=== PATIENT | female | born 1970 | race Caucasian/White ===

== ENCOUNTER → 2018-04-27 | Outpatient (CLI) | payer OTHER ==
[2016-03-31 13:53] VITALS: BP 131/74
[~2018-04-27] MED LIST: CYCL10TA2 PO; METF10007 PO; METH-38 PO; METH4TAB2 PO; NAPR-514 PO; OXYC1TAB15 PO; SITA1TAB11 PO; VENL150C PO; VENL75TA PO
--- NOTE | 2018-04-27 14:08 | KCIC ---
MRI Cervical Spine Without Contrast History: Neck pain, left radiculopathy for 10 days, finger numbness Technique: Multiplanar, multi sequential noncontrast MR imaging was performed of the cervical spine. Comparison: None Findings: There is motion degradation. Cervical cord caliber is within normal limits, no convincing focal signal abnormality. Cervical vertebral body stature and AP alignment are maintained. There is mild degenerative disc disease at C6-7 and to lesser degree at C5-6, mild disc desiccation C4-5. There is no significant marrow edema. C2-C3: Neural foramina and spinal canal are adequate. C3-C4: There is negligible disc osteophyte complex, also shallow protrusion in the far left lateral recess. Central canal is adequate about 11 mm. There is mild narrowing of the left neural foramen apparently by protrusion at the anterior margin. C4-C5: Spinal canal and neural foramina are adequate. C5-C6: There is a broad posterior protrusion which effaces the ventral subarachnoid space and contacts the ventral cord greatest centrally, central canal narrowed to about 7-8 mm. Neural foramina are adequate. C6-C7: There is disc osteophyte complex and bulge. Central canal is narrowed to about 8-9 mm. There is uncovertebral degenerative change greater on the left. There is fairly severe left and at least moderate right neural foramina compromise. C7-T1: Spinal canal and neural foramina are adequate. Impression: 1. There is spinal stenosis about 7-8 mm at C5-C6 and to a somewhat lesser degree at C6-7 as described. There is very shallow protrusion far left lateral recess C3-4, also at the anterior margin of the left neural foramen with mild narrowing. Uncovertebral degenerative change contributes to fairly severe left and at least moderate right C6-7 neural foramina compromise. Electronically signed by: Hector Calderon MD (04/27/2018 2:04 PM) [facility]
== END | disposition home or self-care (01) ==
LOC: KCIC MRI 11:49
PROVIDERS: ATTEND Physician Assistant Medical
DX: M50.121 Cervical disc disorder at C4-C5 level with radiculopathy (principal); M48.02 Spinal stenosis, cervical region; M25.78 Osteophyte, vertebrae
CPT/HCPCS: 72141

== ENCOUNTER 2018-05-15 07:32 | Observation (INO) | payer OTHER ==
[2018-05-15] VITALS (11 sets, daily range): BP systolic 113–130; BP diastolic 65–80
[~2018-05-15] VITALS: Ht 170.2 cm; Wt 84.4 kg
[~2018-05-15 07:32] MED LIST changes: +BACITRACIN 50,000 UNIT in IV NORMAL SALINE 1000ML BAG 1,000 ML IRR ONE; +BUPIVAC MPF-EPI 0.5%-1:200000 30 ML VIAL. ONE; +DULO60CA44 PO; +GABA600T2 PO; +HYDROmorphone 2 MG/ML VIAL IV PRN; +IBUP1TAB84 PO; +IV RINGERS,LACTATED 1000ML 1,000 ML IV SCH; +LIDOCAINE 1% PF 2 ML VIAL. ID PRN; +ONDANSETRON PF 4 MG/2 ML VIAL. IV PRN; +PROCHLORPERAZINE 10 MG/2 ML VIAL. IV PRN; +fentaNYL PF VIAL 100 MCG/2 ML VIAL IV PRN
--- NOTE | 2018-05-15 07:57 | NUR ---
VERIFIED WITH PT THAT SHE DOES HAS ALLERGY TO ADHESIVES. DENIES REACTION TO IV OPSITE BUT DOES STATE REACTION TO SURGICAL DRESSING FROM PREVIOUS BACK SURGERY DONE BY DR CRUZ.
[2018-05-15] MEDS ORDERED: DESFLURANE > 120 MINUTES IH ONE (08:00)
[2018-05-15] MEDS ORDERED: fentaNYL PF VIAL 100 MCG/2 ML VIAL ONE (08:01)
[2018-05-15] MEDS ORDERED: NEOSTIGMINE 10 MG/10 ML VIAL. ONE (08:01)
[2018-05-15] MEDS ORDERED: MIDAZOLAM HCL/PF 2 MG/2 ML VIAL. ONE (08:01)
[2018-05-15] MEDS ORDERED: REMIFENTANIL 2 MG VIAL. IV ONE (08:01)
[2018-05-15] MEDS ORDERED: GLYCOPYRROLATE 1 MG/5 ML VIAL. ONE (08:01)
[2018-05-15] MEDS ORDERED: ROCURONIUM 50 MG/5 ML VIAL. ONE (08:01)
[2018-05-15] MEDS ORDERED: LIDOCAINE 2% PF Vial for OR 5 ML VIAL. ONE (08:02)
[2018-05-15] MEDS ORDERED: PROPOFOL 50 ML IV ONE ×2 (08:02→09:57)
[2018-05-15] MEDS ORDERED: DEXAMETHASONE SOD PHOS 20 MG/5 ML VIAL. ONE (08:02)
[2018-05-15] MEDS ORDERED: ONDANSETRON PF 4 MG/2 ML VIAL. ONE (08:02)
[2018-05-15] MEDS ORDERED: PROPOFOL 20 ML IV ONE (08:02)
[2018-05-15] MEDS ORDERED: PHENYLEPHRINE 10 MG/ML VIAL. ONE (08:18)
--- NOTE | 2018-05-15 11:48 | PDOC ---
BRIEF OPERATIVE NOTE Date: May 15, 2018 Pre-Op Diagnosis cervical HNP C5-6, C6-7 with radiculopathy and weakness Post-Op Diagnosis same Procedure Performed anterior cervical discectomy and fusion C5-6, C6-7 with structural allografts and anterior instrumentation Surgeon Teodoro Dynamic Etching Processor none Anesthesia Type: General Blood Loss 15mL Specimens Obtained disk Findings disc herniations as above, neuromonitoring SSEP and MEP at least baseline throughout procedure Complications none apparent TANYA CRUZ MD May 15, 2018 11:48
[2018-05-15] MEDS ORDERED: fentaNYL PF VIAL 100 MCG/2 ML VIAL IV PRN ×2 (12:00)
[2018-05-15] MEDS ORDERED: NALOXONE 0.4 MG/ML VIAL. IV PRN (12:00)
[2018-05-15] MEDS ORDERED: ONDANSETRON PF 4 MG/2 ML VIAL. IV PRN (12:00)
[2018-05-15] MEDS ORDERED: ACETAMINOPHEN 325 MG TABLET. PO PRN (12:00)
[2018-05-15] MEDS ORDERED: 0.9 % SODIUM CHLORIDE 10 ML DISP.SYRIN. IV PRN (12:00)
[2018-05-15] MEDS ORDERED: MAGNESIUM HYDROXIDE 2,400 MG/30 ML ORAL.SUSP. PO PRN (12:00)
[2018-05-15] MEDS ORDERED: ZOLPIDEM 5 MG TABLET. PO PRN (12:00)
[2018-05-15] MEDS ORDERED: oxyCODONE/APAP 5/325 1 TAB TABLET PO PRN (12:00)
[2018-05-15] MEDS ORDERED: MAG HYDROX/ALUMINUM HYD/SIMETH 30 ML ORAL.SUSP PO PRN (12:00)
[2018-05-15] MEDS ORDERED: CALCIUM CARBONATE 500 MG TAB.CHEW PO PRN (12:00)
[2018-05-15] MEDS: fentaNYL PF VIAL 100 MCG/2 ML VIAL IV PRN ×2 (12:09→12:23)
[2018-05-15] MEDS ORDERED: MORPHINE SULFATE 4 MG/ML VIAL. ONE (12:34)
[2018-05-15] MEDS: MORPHINE SULFATE 4 MG/ML VIAL. IV PRN ×3 (12:39→13:19)
--- NOTE | 2018-05-15 13:30 | NUR ---
Arrived to unit by bed from PACU. No c/o at this time. Midline dressing on neck is d/i with ice pack. Voice a little hoarse. Equal hand student development specialist bilaterally. Still has numbness on left hand finger tips. IVF's intact and infusing. ORESTES's and SCD's on bilaterally. Oriented to room and controls. Side rails up x's 2 with call light in reach.
[2018-05-15] MEDS: GABAPENTIN 300 MG CAPSULE. PO SCH ×2 (13:50→21:11)
[2018-05-15] MEDS: METHOCARBAMOL 750 MG TABLET PO SCH ×2 (13:51→21:11)
[2018-05-15] MEDS: oxyCODONE/APAP 5/325 1 TAB TABLET PO PRN (18:08)
[2018-05-15] MEDS: SENNOSIDES/DOCUSATE 8.6/50MG TABLET. PO SCH (21:00)
[2018-05-15] MEDS: DOCUSATE SODIUM 100 MG CAPSULE. PO SCH (21:11)
[2018-05-15] MEDS: diphenhydrAMINE HCL 25 MG CAPSULE PO PRN (21:18)
[2018-05-16 03:00] VITALS: BP 125/82
[2018-05-16] MEDS: diphenhydrAMINE HCL 25 MG CAPSULE PO PRN (04:48)
--- NOTE | 2018-05-16 05:03 | NUR ---
Patient scratching around island dressing, slightly anxious ,"this has to come off." Dressing removed, cleansed w/ Chloraprep. States she can tolerate plastic tape. Folded 4x4 placed over incision (which has steri- strip) and secured w/ plastic tape. Surgical area is slightly swollen. Ice pack placed. Benadryl given.
[2018-05-16] MEDS: oxyCODONE/APAP 5/325 1 TAB TABLET PO PRN (06:08)
[2018-05-16] MEDS: METHOCARBAMOL 750 MG TABLET PO SCH (06:12)
[2018-05-16] MEDS: GABAPENTIN 300 MG CAPSULE. PO SCH (06:12)
[2018-05-16 06:44] VITALS: BP 124/86
[2018-05-16] MEDS ORDERED: DULoxetine HCL 30 MG CAPSULE.DR PO SCH (07:00)
--- NOTE | 2018-05-16 07:19 | NUR ---
Found patient dangling at bedside w/ surgical dressing on bedside table. Steri strips D/I. Reports the burning and itching is "better."
[2018-05-16] MEDS: DOCUSATE SODIUM 100 MG CAPSULE. PO SCH (07:52)
[2018-05-16] MEDS: SENNOSIDES/DOCUSATE 8.6/50MG TABLET. PO SCH (07:52)
[2018-05-16] MEDS ORDERED: CALCIUM CARB/VIT D3 500/200 TABLET. PO SCH (08:00)
[2018-05-16] MEDS ORDERED: FERROUS SULFATE 325 MG TABLET. PO SCH (08:00)
--- NOTE | 2018-05-16 08:56 | PDOC ---
PROGRESS NOTES Subjective Subjective Denies acute complaints. Numbness improved. Some residual numbness in thumb. Reports improved LUE strength. Micheline po without problems. Some pruritic reaction to adhesives from dressing, now improved. Objective Objective Vital Signs Date Time Temp Pulse Resp B/P (MAP) Pulse Ox O2 Delivery O2 Flow Rate FiO2 05/16/18 07:23 20 Room Air 05/16/18 06:44 97.7 67 124/86 (99) 100 97.7 05/15/18 11:48 10 Intake and Output 05/16/18 07:01 Intake Total 1400 ml Output Total 850 ml Balance 550 ml Intake Oral 1400 ml Output Urine Total 850 ml # Voids 15 Physical Exam Physical Exam AAOx4, NAD, LYNN 5/5 throughout, incision c/d/i flat, speech fluent with good phonation Assessment Assessment POD 1 C5-6, 6-7 ACDF Plan Plan of Care Appears to be recovering well thus far with improved numbness and now normal strength. D/c home today with standard post-op restrictions. F/c two weeks with NS/[facility] [phone]. Comment Review of Relevant I have reviewed the following items enedina (where applicable) has been applied. Medications Current Medications Bacitracin 62763 unit/Sodium Chloride 1,000 ml @ 1,000 mls/hr 1X ONCE IRR Last administered on 05/15/18at 09:30; Start 05/15/18 at 06:00; Stop 05/15/18 at 06:59; Status DC Prochlorperazine Edisylate (Compazine) 5 mg PACU PRN PRN IV NAUSEA, MRX1; Start 05/15/18 at 07:00; Stop 05/16/18 at 06:59; Status DC Hydromorphone HCl (Dilaudid) 0.5 mg PRN Q10MIN PRN IV SEV PAIN, Second choice; Start 05/15/18 at 07:00; Stop 05/16/18 at 06:59; Status DC Lidocaine HCl (Xylocaine-Mpf 1% 2ml Vial) 2 ml PRN 1X PRN ID IV START; Start at 07:00; Stop 05/16/18 at 06:59; Status DC Ringer's Solution 1,000 ml @ 30 mls/hr Q24H IV ; Start 05/15/18 at 07:00; Stop 05/15/18 at 18:59; Status DC Morphine Sulfate (Morphine Sulfate) 1 mg PRN Q10MIN PRN IV SEVERE PAIN Last administered on 05/15/18at 13:19; Start 05/15/18 at 07:00; Stop 05/16/18 at 06:59 ; Status DC Fentanyl Citrate (Fentanyl 2ml Vial) 50 mcg PRN Q5MIN PRN IV MODERATE TO SEVERE PAIN Last administered on 05/15/18at 12:23; Start 05/15/18 at 07:00; Stop 05/16/18 at 06:59; Status DC Fentanyl Citrate (Fentanyl 2ml Vial) 25 mcg PRN Q5MIN PRN IV MILD PAIN; Start 05/15/18 at 07:00; Stop 05/16/18 at 06:59; Status DC Ondansetron HCl (Zofran) 4 mg PRN Q6HRS PRN IV NAUSEA/VOMITING; Start 05/15/18 at 07:00; Stop 05/16/18 at 06:59; Status DC Cefazolin Sodium/ Dextrose 50 ml @ 100 mls/hr 1X ONCE IV Last administered on 05/15/18at 09:07; Start 05/15/18 at 06:00; Stop 05/15/18 at 06:29; Status DC Bupivacaine HCl/ Epinephrine Bitart (Sensorcain-Mpf Epi 0.5%-1:[id number]) 30 ml STK -MED ONCE .ROUTE Last administered on 05/15/18at 09:27; Start 05/15/18 at 07:17 ; Stop 05/15/18 at 07:20; Status DC Desflurane (Suprane) 90 ml STK-MED ONCE IH ; Start 05/15/18 at 08:00; Stop 05/15 at 08:04; Status DC Neostigmine Methylsulfate (Bloxiverz) 10 mg STK-MED ONCE .ROUTE ; Start at 08:01; Stop 05/15/18 at 08:04; Status DC Midazolam HCl (Versed) 2 mg STK-MED ONCE .ROUTE ; Start 05/15/18 at 08:01; Stop 05/15/18 at 08:04; Status DC Remifentanil HCl (Ultiva) 2 mg STK-MED ONCE IV ; Start 05/15/18 at 08:01; Stop 05/15/18 at 08:04; Status DC Fentanyl Citrate (Fentanyl 2ml Vial) 100 mcg STK-MED ONCE .ROUTE ; Start at 08:01; Stop 05/15/18 at 08:05; Status DC Glycopyrrolate (Robinul) 1 mg STK-MED ONCE .ROUTE ; Start 05/15/18 at 08:01; Stop 05/15/18 at 08:05; Status DC Rocuronium Showell (Zemuron) 50 mg STK-MED ONCE .ROUTE ; Start 05/15/18 at 08:01 ; Stop 05/15/18 at 08:05; Status DC Ondansetron HCl (Zofran) 4 mg STK-MED ONCE .ROUTE ; Start 05/15/18 at 08:02; Stop 05/15/18 at 08:06; Status DC Lidocaine HCl (Lidocaine Pf 2% Vial) 5 ml STK-MED ONCE .ROUTE ; Start 05/15/18 at 08:02; Stop 05/15/18 at 08:06; Status DC Propofol 50 ml @ As Directed STK-MED ONCE IV ; Start 05/15/18 at 08:02; Stop at 08:06; Status DC Propofol 20 ml @ As Directed STK-MED ONCE IV ; Start 05/15/18 at 08:02; Stop at 08:06; Status DC Dexamethasone Sodium Phosphate (Decadron) 20 mg STK-MED ONCE .ROUTE ; Start at 08:02; Stop 05/15/18 at 08:06; Status DC Phenylephrine HCl (Feng-Synephrine Inj) 10 mg STK-MED ONCE .ROUTE ; Start at 08:18; Stop 05/15/18 at 08:20; Status DC Propofol 50 ml @ As Directed STK-MED ONCE IV ; Start 05/15/18 at 09:57; Stop at 09:58; Status DC Multivitamins (Thera M Plus) 1 tab DAILY PO Last administered on 05/16/18at 07: 52; Start 05/16/18 at 09:00 Calcium/Vitamin D (Oscal D 500mg/ 200uts) 1 tab BIDWMEALS PO Last administered on 05/16/18at 07:51; Start 05/16/18 at 08:00 Ferrous Sulfate (Feosol) 325 mg BIDWMEALS PO Last administered on 05/16/18at 07: 52; Start 05/16/18 at 08:00 Acetaminophen (Tylenol) 650 mg PRN Q6HRS PRN PO HEADACHE / TEMP; Start at 12:00 Al Hydroxide/Mg Hydroxide (Mylanta Plus Xs) 30 ml PRN Q3HRS PRN PO HEARTBURN / GAS; Start 05/15/18 at 12:00 Calcium Carbonate/ Glycine (Tums) 500 mg PRN Q3HRS PRN PO INDIGESTION; Start at 12:00 Diphenhydramine HCl (Benadryl) 25 mg PRN Q6HRS PRN PO ITCHING Last administered on 05/16/18at 04:48; Start 05/15/18 at 12:00 Zolpidem Tartrate (Ambien) 5 mg PRN QHS PRN PO INSOMNIA, MAY REPEAT IN 1HR; Start 05/15/18 at 12:00 Naloxone HCl (Narcan) 0.1 mg PRN Q2MIN PRN IV ADMIN; Start 05/15/18 at 12:00 Sodium Chloride (Normal Saline Flush) 3 ml QSHIFT PRN IV AFTER MEDS AND BLOOD DRAWS; Start 05/15/18 at 12:00 Oxycodone/ Acetaminophen (Percocet 5/325) 1 tab PRN Q4HRS PRN PO MILD PAIN, 1ST CHOICE Last administered on 05/16/18at 06:08; Start 05/15/18 at 12:00 Oxycodone/ Acetaminophen (Percocet 5/325) 2 tab PRN Q4HRS PRN PO MODERATE PAIN , SEVERE PAIN; Start 05/15/18 at 12:00 Methocarbamol (Robaxin) 750 mg TID PO Last administered on 05/16/18at 06:12; Start 05/15/18 at 14:00 Senna/Docusate Sodium (Senna Plus) 1 tab BID PO Last administered on 05/16/18at 07:52; Start 05/15/18 at 21:00 Docusate Sodium (Colace) 100 mg BID PO Last administered on 05/16/18at 07:52; Start 05/15/18 at 21:00 Magnesium Hydroxide (Milk Of Magnesia) 2,400 mg PRN Q12HR PRN PO CONSTIPATION; Start 05/15/18 at 12:00 Ondansetron HCl (Zofran) 4 mg PRN Q6HRS PRN IV NAUESA, 1ST CHOICE; Start at 12:00 Fentanyl Citrate (Fentanyl 2ml Vial) 50 mcg PRN Q1HR PRN IV SEVERE PAIN; Start 05/15/18 at 12:00 Fentanyl Citrate (Fentanyl 2ml Vial) 25 mcg PRN Q1MIN PRN IV SEVERE PAIN; Start 05/15/18 at 12:00 Duloxetine HCl (Cymbalta) 60 mg DAILY PO Last administered on 05/16/18at 06:27; Start 05/16/18 at 07:00 Gabapentin (Neurontin) 300 mg TID PO Last administered on 05/16/18at 06:12; Start 05/15/18 at 14:00 Morphine Sulfate (Morphine Sulfate) 4 mg STK-MED ONCE .ROUTE ; Start 05/15/18 at 12:34; Stop 05/15/18 at 12:36; Status DC Active Scripts Active Reported Duloxetine Hcl 60 Mg Capsule.dr 60 Mg PO DAILY Gabapentin 600 Mg Tablet 300 Mg PO TID Duexis 800-26.6 Mg Tablet (Ibuprofen/Famotidine) 1 Each Tablet 1 Each PO DAILY Vitals/I & O Vital Sign - Last 24 Hours 05/15/18 05/15/18 05/15/18 05/15/18 11:48 12:03 12:03 12:09 Temp 97.5 97.5 Pulse 91 80 Resp 18 14 18 B/P (MAP) 132/58 114/61 Pulse Ox 100 97 O2 Delivery Simple Mask Room Air Room Air O2 Flow Rate 10 05/15/18 05/15/18 05/15/18 05/15/18 12:18 12:23 12:33 12:48 Temp 97.6 97.6 Pulse 70 65 69 Resp 16 16 16 16 B/P (MAP) 103/52 126/56 110/58 Pulse Ox 98 97 97 99 O2 Delivery Room Air Room Air Room Air Room Air 05/15/18 05/15/18 05/15/18 05/15/18 12:54 13:03 13:35 13:50 Temp 98.1 98.1 Pulse 76 67 67 Resp 14 16 16 16 B/P (MAP) 110/58 113/68 (83) 117/65 (82) Pulse Ox 97 95 97 97 O2 Delivery Room Air Room Air Room Air Room Air 05/15/18 05/15/18 05/15/18 05/15/18 14:05 14:20 14:20 14:35 Pulse 67 63 61 Resp 14 14 14 B/P (MAP) 115/70 (85) 118/75 (89) 117/75 (89) Pulse Ox 97 98 98 O2 Delivery Room Air Room Air Room Air Room Air 05/15/18 05/15/18 05/15/18 05/15/18 15:05 15:35 16:35 17:35 Pulse 60 61 62 76 Resp 14 14 14 16 B/P (MAP) 123/80 (94) 118/75 (89) 121/71 (88) 130/73 (92) Pulse Ox 96 96 97 97 O2 Delivery Room Air Room Air Room Air Room Air 05/15/18 05/15/18 05/15/18 05/16/18 18:08 19:07 23:00 03:00 Temp 97.9 98.8 98.0 97.9 98.8 98.0 Pulse 82 58 71 Resp 20 14 20 20 B/P (MAP) 120/76 (91) 122/72 (89) 125/82 (96) Pulse Ox 96 98 99 O2 Delivery Room Air Room Air Room Air Room Air 05/16/18 05/16/18 05/16/18 06:08 06:44 07:23 Temp 97.7 97.7 Pulse 67 Resp 20 20 20 B/P (MAP) 124/86 (99) Pulse Ox 100 O2 Delivery Room Air Room Air Room Air Intake and Output 05/15/18 05/15/18 05/16/18 15:01 23:01 07:01 Intake Total 10 ml 240 ml 1150 ml Output Total 850 ml Balance 10 ml -610 ml 1150 ml TANYA CRUZ MD May 16, 2018 08:56
[2018-05-16] MEDS ORDERED: MULTIVITAMIN with MINERAL TABLET. PO SCH (09:00)
[2018-05-16] MEDS ORDERED: SENN-37 PO (09:28)
[2018-05-16] MEDS ORDERED: METH-38 PO (09:28)
[2018-05-16] MEDS ORDERED: OXYC1TAB15 PO (09:29)
[2018-05-16 10:34] VITALS: BP 112/76
--- NOTE | 2018-05-16 11:14 | NUR ---
Dr Valreio saw the patient this morning and stated to discharge patient today with self care. He was notified about her incision and assessed the patients neck redness/incision. A dry dressing (a 2X2 with a steri strip to hold it in place) was placed over the steri strips on the patients incision but the patient quickly took it off, stating it bothered her and made her itch. Steri strips are dry/intact with no drainage present from incision. IV discontinued in left wrist without complications, no bandage was placed per patient preference and no bleeding present at this time. Discharge education given to patient with proper incision care, patient stated understanding. Discharge teaching also given by PT, OT, and Dr Valerio. NO concerns noted from the patient at this time. Will continue to monitor.
--- NOTE | 2018-05-16 11:40 | NUR ---
Patient left around 1140 in a wheelchair with a friend. She left with all her belongings and discharge education. NO concerns noted upon discharge.
--- NOTE | 2018-05-17 09:13 | PATHOLOGY ---
[facility] Accession Number: [id number] . 01 Material submitted: . HERNIATED DISC . 01 Clinical history: . Herniated disc . 02 Diagnosis: Segments of cartilaginous tissue and minute segments of bone, disc: - Degenerative changes of cartilaginous tissue. LBQ/05/16/2018 . 02 Comment: There is no evidence of an acute inflammatory process or malignancy. (JPM/db; 05/16/2018) . 02 Electronically signed: . Jimy Merino MD, Pathologist NPI- [id number] . 01 Gross description: . The specimen is received in formalin, labeled "[place], Alisha, disc", are multiple oneal-white irregular fragments of gritty tissue possibly admixed with small segments of bone measuring 3.0 x 2.4 x 0.4 cm in aggregate. Hop Weigher tissue is submitted in A1. ([facility]; 05/15/2018) SHS/SHS . 02 Pathologist provided ICD-10: M50.90 . 02 CPT . 768459 Specimen Comment: A courtesy copy of this report has been sent to Specimen Comment: [phone], . Specimen Comment: Report sent to / DR RODRÍGUEZ Specimen Comment: A duplicate report has been generated due to demographic updates. Performed at: 01 [facility] [address], [place] [id number] MD Johann Gonsalez MD Phone: [phone] Performed at: 02 [facility] [address] [place], [place] [id number] MD Jimy Merino MD Phone: [phone]
--- NOTE | 2018-05-17 11:01 | OP ---
DATE OF SURGERY: 05/15/2018 SURGEON: Tanya Cruz MD. IT HELP DESK TECHNICIAN: None. PROCEDURE: Anterior cervical diskectomy and fusion of cervical 5-6 and cervical 6-7 utilizing structural allograft fusion substrate with anterior instrumentation at cervical 5-6 and 6-7, intraoperative use of neuro monitoring. ANESTHESIA: General. COMPLICATIONS: None intraprocedurally. PREOPERATIVE DIAGNOSES: Herniated nucleus pulposus at cervical 5-6 and cervical 6-7 with cervical radiculopathy and weakness. POSTOPERATIVE DIAGNOSES: Herniated nucleus pulposus at cervical 5-6 and cervical 6-7 with cervical radiculopathy and weakness. INDICATIONS FOR THE PROCEDURE: The patient is a 47-year-old female who presents with cervical radiculopathy and weakness localized to a herniated cervical disks at cervical 5-6 and cervical 6-7. Please refer to the patient chart for additional details. DESCRIPTION OF PROCEDURE: After informed consent was obtained, the patient was brought to the operating room, was placed under general anesthesia. Neuro monitoring was instituted and baseline somatosensory and motor evoked potentials were obtained. The patient was placed supine on to the operating table with a shoulder bump under both shoulders with the head placed in very slight extension. All pressure points were checked and padded appropriately. Fluoroscopy was utilized to localize an appropriate incision location on the anterior neck. Once this was completed, the anterior neck was prepped and draped in the usual sterile fashion. A horizontal incision centered over the region of cervical 6 was made with a scalpel. Blunt dissection techniques were utilized to undermine the soft tissues. The platysma was then divided sharply in the plane of the incision. Blunt dissection techniques were again utilized to develop a plane between the trachea and esophagus medially and the carotid sheath laterally to approach the anterior cervical spine. The prevertebral fascia was taken down with a Kittner, and the longus colli muscles were gently cauterized to expose the anterior cervical spine. Level was verified with fluoroscopy prior to the initiation of decompression diskectomy. Once the self-retaining retractors were instituted, distraction pins were instituted across cervical 5-6 and an annulotomy was performed at this location with an 11 blade scalpel. Anterior inferior osteophyte of cervical 5 was taken down with a Kerrison, and the bone was saved for implementation of autograft within the allograft substrate. Diskectomy was performed with a curette as well as pituitary rongeurs and Kerrison rongeurs. The posterior longitudinal ligament was divided with Kerrison rongeur, and disk material was gently teased posteriorly into the disk space with a blunt nerve hook and removed with a pituitary rongeur. Upon completion of the diskectomy, structural allograft, which was combined with allograft and autograft substrate, was instituted and gently tamped in the position. Once this was complete, distraction was removed, and the distraction pin was removed from cervical 5 and placed in cervical 7. Distraction was instituted across cervical 6-7. The annulotomy was again performed with 11 blade scalpel. An anterior inferior osteophyte of cervical 6 was removed with a Kerrison rongeur and saved for use of autograft substrate combined with the allograft. Diskectomy was performed with a curette as well as a pituitary rongeur and a Kerrison rongeur. The posterior longitudinal ligament was divided with a Kerrison rongeur and additional herniated disk material was gently teased posteriorly with a blunt nerve hook and removed with a pituitary rongeur. Once diskectomy was complete, structural allograft combined with autograft and allograft was instituted into the disk space and gently tamped into place with good anatomical contour. Once complete, the distraction was removed and the distraction pins were removed from cervical 6 and cervical 7. A spinal element anterior cervical plate was instituted across cervical 5, 6 and 7, and 2 screws were instituted into each level and tightened to secure the plate with good anatomical contour. The screws and the plate were torqued and locked according to customer quality engineer's specification. Once complete, the construct was visualized with fluoroscopy and noted to be in appropriate location and position. Pristine hemostasis was achieved with FloSeal, cottonoids and some minimal use of bipolar electrocautery. The wound was generously irrigated with antibiotic irrigation prior to closure. The platysma was then reapproximated with 3-0 Vicryl in a simple interrupted fashion. The subcutaneous tissues were reapproximated with 3-0 Vicryl in interrupted inverted fashion. Skin was reapproximated with 4-0 Vicryl in a running subcuticular fashion. Mastisol and Steri-Strips were applied, and the wound was dressed with Telfa and Tegaderm. At the end of procedure, all needle and sponge counts were correct x 2. The patient was extubated in the operating room and taken to recovery room in stable condition. Neuro monitoring remained at least baseline throughout the entire procedure. There were no intraprocedural complications apparent. TANYA CRUZ MD DR: FARAZ/lydia JOB#: [id number] / [id number]
== END 2018-05-16 11:40 | disposition home or self-care (01) ==
LOC: SURG 07:32 → 4 SOUTHEST 11:49
PROVIDERS: ADMIT Neurological Surgery; ATTEND Neurological Surgery
DX: M50.122 Cervical disc disorder at C5-C6 level with radiculopathy (principal); M50.123 Cervical disc disorder at C6-C7 level with radiculopathy; M25.78 Osteophyte, vertebrae; R53.1 Weakness
CPT/HCPCS: 20930; 22551; 22552; 22845; 36415; 76000; 86850; 86900; 86901; 88304; 97530; A7015; C1713; G0378; G0379; G8978; G8979; G8980; J0696; J1100; J2001; J2250; J2270; J2405; J2704; J2710; J3010; J3490; J7030; J7120; Q0163

== ENCOUNTER → 2019-12-25 | Outpatient (CLI) | payer OTHER ==
[~2019-12-25] MED LIST changes: -BACITRACIN 50,000 UNIT in IV NORMAL SALINE 1000ML BAG 1,000 ML IRR ONE; -BUPIVAC MPF-EPI 0.5%-1:200000 30 ML VIAL. ONE; -DULO60CA44 PO; +DULO60CA45 PO; +DULO60CA6 PO; +ESTR-113 PO; -GABA600T2 PO; +GABA600T7 PO; -HYDROmorphone 2 MG/ML VIAL IV PRN; +IOHEXOL 180 MG/ML 10 ML VIAL. ONE; -IV RINGERS,LACTATED 1000ML 1,000 ML IV SCH; -LIDOCAINE 1% PF 2 ML VIAL. ID PRN; +META-21 PO; -ONDANSETRON PF 4 MG/2 ML VIAL. IV PRN; -PROCHLORPERAZINE 10 MG/2 ML VIAL. IV PRN; +SENN-37 PO; -fentaNYL PF VIAL 100 MCG/2 ML VIAL IV PRN; +methylPREDNISolone ACETATE 40 MG/ML VIAL. ONE; +methylPREDNISolone ACETATE 80 MG/ML VIAL. ONE
--- NOTE | 2019-12-25 12:29 | PDOC2 ---
INITIAL PAIN CONSULT DATE OF SERVICE: DOS: DATE: 12/25/19 TIME: 12:22 CHIEF COMPLAINT: Chief Complaint: Low back and bilateral lower extremity pain right greater than left HISTORY OF PRESENT ILLNESS: 49-year-old female presents history of pain low back bilateral lower extremities right greater than left for about 3 months now patient reports much worse with walking standing changing positions not result of any injury or accident that she is aware of. Patient worsening came on suddenly and was increasing slowly after that time over the past 3 months and she "cannot feel surface under my feet". Patient reports numbness in both the feet right knee is numb with right foot dragging with activity standing and walking pain is increased with any standing walking changing positions better with sitting or laying down but awaken her from sleep significantly about every 7-10 times a night now patient reports does not affect her bowel bladder control but does affect her ability to walk significantly she is not use any assistive devices. Patient has tried physical therapy counseling chiropractic treatment exercise she also had trigger point junctions and epidural injections in the past which were helpful the physical therapy and chiropractic has not been significantly helpful but helps temporarily. Patient did have a gastric sleeve procedure in 2017 which helped her lose about 90 pounds and she is continue to exercise and doing everything she can to try and decrease the pain but is still persistent. Patient to try gabapentin as well as meloxicam and metaxalone none of which decreased the pain significantly. Patient reports her disability rating from 0-10 10 being the worst is a 10 with family responsibilities recreation 9 with social activity occupation sexual behavior 8 with self-care and life support activities. Patient did have an MRI scan lumbar spine showing L4-5 broad-based annular disc bulge reduced in AP diameter the midline thecal sac to 0.8 cm with associated disc bulge and osteophyte of the right exiting neural foramen resulting in mode rate inferior neural foraminal encroachment borderline central canal stenosis. L5-S1 has postoperative changes with disc osteophyte complex no significant the left lateral recess contacting the left S1 nerve root. PAST MEDICAL HISTORY: PMH: Obesity, mitral valve prolapse, arthritis, type 2 diabetes, depression PREVIOUS SURGERIES: Past Surgical Hx: Lumbar discectomy 2016 hysterectomy 2014 exploratory laparotomy anterior cervical discectomy and fusion 2019, and previous CURRENT MEDICATIONS: Current Meds: Active Scripts Medications Dose Route/Sig Max Daily Dose Days Date Category Percocet 5-325 Mg Tablet (Oxycodone/Acetaminophen) 1 Each Tablet 1-2 Tab PO PRN Q4HRS PRN 05/16/18 Reported Robaxin-750 (Methocarbamol) 750 Mg Tablet 1 Tab PO Q8HRS 05/16/18 Reported Senokot-S Tablet (Sennosides/Docusate Sodium) 1 Each Tablet 1 Tab PO BID 05/16/18 Reported Duloxetine Hcl 60 Mg Capsule.dr 60 Mg PO DAILY 05/14/18 Reported Gabapentin 600 Mg Tablet 300 Mg PO TID 05/14/18 Reported ALLERGIES; Allergies: Coded Allergies: latex (Verified Allergy, Intermediate, Itching, 05/15/18) rash adhesive tape (Verified Adverse Reaction, Intermediate, Rash, 05/15/18) ITCHING FAMILY HISTORY: Family Hx: No major medical problems or conditions she is aware of SOCIAL HISTORY: Social Hx: Patient drinks socially 1-2 drinks every 3 months or so does not smoke does not use any illegal illicit or recreational drugs is lives with her spouse has 2 children living at home lives locally in [facility], 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 REVIEW OF SYSTEMS: ROS: Positive for those items mentioned in history of present illness, is complete full well-documented patient's chart, all other systems negative. PHYSICAL EXAM: VS: Blood pressure is 134/89 pulse 69 respiration 16 temperature 98.2 F height is 5 foot 8 inches weight is 1 8 8 pounds PE: PHYSICAL EXAMINATION: GENERAL: The patient is awake, alert, oriented, appropriate, very pleasant demeanor HEENT: Shows normocephalic, atraumatic. Extraocular movements are intact and symmetrical. Oral cavity: Mucous membranes moist and pink. NECK: Shows anterior throat supple without palpable lymphadenopathy noted. Swa llow reflex symmetrical. CHEST: Shows normal on inspection. Breath sounds are clear bilaterally, no rales rhonchi wheezes auscultated. HEART: Shows S1, S2 clear. No murmurs auscultated. ABDOMEN: Soft, nontender, nondistended, obese. No palpable organomegaly is noted. No rebound or guarding demonstrated. BACK: Shows spine grossly in the midline. Normal-appearing cervical lordotic curvature. There is slightly increased thoracic kyphosis, some minor flattening of the lumbar lordotic curvature, with well-healed surgical scarring in the midline. Lumbar paraspinous muscles show symmetrical on inspection, on palpation shows some moderate tenderness diffusely throughout the upper, middle and lower distribution of the paraspinous muscles bilaterally and also into the lower thoracic paraspinous musculature, firm and tender, but without specific trigger points, without radiation of pain. The patient has good rotational motion of the lumbar spine, both laterally as well as extension and flexion without significant difficulty. No tenderness over the spinous processes, sacrum or sacroiliac regions. EXTREMITIES: Lower extremities show deep tendon reflexes 2+ in the patellar and tendo calcaneus tendons. Motor exam is 4 on a scale of 5 with right dorsiflexion, extension, quadriceps and hamstring flexion and 4/5 on the left. Peripheral pulses are 1+ posterior tibial. No peripheral edema is noted bilaterally. Lower extremities are warm and dry to touch, equal in color and appearance. Straight leg raise noted to be positive on the right about 45 degrees, left side is negative. Gaenslen's and Benton's maneuvers are negative as well. The patient is able to stand, stand on her toes without significant difficulty or loss of balance walks with a normal-appearing gait for short distance in the office today not use any assistive devices to ambulate. SKIN: Shows warm and dry, good turgor. No edema. No sores, rashes or bruising throughout. IMPRESSION: Impression: 49-year-old female with proximate 3-month history increasing pain low back bilateral lower extremities greater on the right than the left. MRI scan lumbar spine as noted Arthritis Plan: Options were discussed with the patient including conservative medical measures physical therapies interventional techniques and she like to proceed and vaginal techniques. We discussed a lumbar epidural steroid injection as a caudal approach with descriptions as well as anatomical models to describe the procedure. Patient will like to proceed we discussed risks including but not limited to bleeding infection possibility of epidural hematoma subsequent neurological compromise dural puncture headache spinal cord and or nerve damage side effects steroid medication and portals chronic pain control. Patient understands wished to proceed. Patient return to clinic in approximate 2 weeks for follow-up. Patient was counseled as activity level as well as side effects be aware. Procedure is lumbar epidural steroid injection under local anesthetic using nicole rile prep and drape at the caudal level using C-arm fluoroscopic guidance in both AP and lateral views medications injected is 120 mg Depo-Medrol + 10 mL preservative-free normal saline and 2 mL contrast- condition at discharge is stable patient tolerated procedure well had no complications. CHRIS HOLDER MD Dec 25, 2019 12:29
== END | disposition home or self-care (01) ==
LOC: PNCL 11:14
PROVIDERS: ATTEND Anesthesiology
DX: M54.5 Low back pain (principal); M79.662 Pain in left lower leg; M79.661 Pain in right lower leg; F32.9 Major depressive disorder, single episode, unspecified; M19.90 Unspecified osteoarthritis, unspecified site; E11.9 Type 2 diabetes mellitus without complications; Z98.890 Other specified postprocedural states; Z72.89 Other problems related to lifestyle; Z79.899 Other long term (current) drug therapy
CPT/HCPCS: 62323; J1030; J1040; Q9965

== ENCOUNTER → 2020-01-08 | Outpatient (CLI) | payer OTHER ==
--- NOTE | 2020-01-08 09:49 | PDOC ---
Progress Note - Pain Clinic Date of Service: DOS: DATE: 01/08/20 TIME: 09:45 Diagnosis: Dx: Lumbar radiculopathy with lumbar degenerative disease lumbar postlaminectomy syndrome History or Present Illness: HPI: 49-year-old female returns follow-up status post caudal epidural to injection x1. Patient ports the pain is decreased by about 50% but the numbness is still significant in the right lower extremity. Patient reports mobility is been slightly improved because of the pain is reduced but the numbness in the right leg is still significant and still feels unstable on her feet although her mobility has been a little more active. Patient reports the pain is a 9 on scale 10 is worse over the past week 7 on average 5 its least is a 7 today patient ports tingling burning cramping reports that she cannot feel the right leg when she is walking is aching pain that sharp and dull in the back also some mild radiating pain in the right leg in the posterior gluteus posterior thigh posterior calf as well as the medial calf and thigh on the right side as well as can be severe and unbearable with activity. Patient reports he has been sleeping better for the past few weeks but the pain is beginning to return and sleep release once a night. Patient reports no new motor or sensory deficits no new bowel or bladder incontinence. Physical Exam: VS: Blood pressure is 125/85 pulse 73 respirations are 16 temperature 98.0 F height is 5 foot 8 inches weight is 190lbs PE: PHYSICAL EXAMINATION: GENERAL: The patient is awake, alert, oriented, appropriate, very pleasant demeanor HEENT: Shows normocephalic, atraumatic. Extraocular movements are intact and symmetrical. Oral cavity: Mucous membranes moist and pink. Dentition is intact. NECK: Shows anterior throat supple without palpable lymphadenopathy noted. Swallow reflex symmetrical. CHEST: Shows normal on inspection. Breath sounds are clear bilaterally. HEART: Shows S1, S2 clear. No murmurs auscultated. ABDOMEN: Soft, nontender, nondistended. No palpable organomegaly is noted. No rebound or guarding demonstrated. BACK: Shows spine grossly in the midline. Normal-appearing cervical lordotic curvature. There is slightly increased thoracic kyphosis, some minor flattening of the lumbar lordotic curvature. Lumbar region shows well-healed midline surgical scar, paraspinous muscles show symmetrical on inspection, on palpation shows some moderate tenderness diffusely throughout the upper, middle and lower distribution of the paraspinous muscles bilaterally without specific trigger points, without radiation of pain. The patient has good rotational motion of the lumbar spine, both laterally as well as extension and flexion without significant difficulty. No tenderness over the spinous processes, sacrum or sacroiliac regions. EXTREMITIES: Lower extremities show deep tendon reflexes 2+ in the patellar and tendo calcaneus tendons. Motor exam is 4 on a scale of 5 with right dorsiflexion, extension, quadriceps and hamstring flexion and 4/5 on the left. Peripheral pulses are 1+ posterior tibial. No peripheral edema is noted bilaterally. Lower extremities are warm and dry to touch, equal in color and appearance. SKIN: Shows warm and dry, good turgor. No edema. No sores, rashes or bruising throughout. Procedure: Procedure: Options were discussed with the patient. Patient will chart was use her current medication regimen updated current review of systems updated today as well. We will proceed with a second in the series caudal approach epidural steroid injection today with fluoroscopic guidance. Risks were discussed including but not limited to: Bleeding, infection, possibility of epidural hematoma and subsequent neurological compromise, dural puncture, headaches, spinal cord and/or nerve damage, side effects of steroid medication, and poor results regarding pain control. Patient understands wished to proceed. Patient return to clinic in approximate 2 weeks for follow-up with calcis return appointment active level and side effects be aware of. Medication Injected: Med Injected: Procedure is lumbar epidural steroid injection under local anesthetic using sterile prep and drape at the caudal level using C-arm fluoroscopic guidance in both AP and lateral views medications injected is 120 mg Depo-Medrol + 10 mL preservative-free normal saline and 2 mL contrast- condition at discharge is stable patient tolerated procedure well had no complications. Condition at Discharge: Condition at Discharge: Condition at discharge is stable patient tolerated the procedure well had no complications. CHRIS HOLDER MD Jan 08, 2020 09:49
== END | disposition home or self-care (01) ==
LOC: PNCL 08:53
PROVIDERS: ATTEND Anesthesiology
DX: M51.16 Intervertebral disc disorders with radiculopathy, lumbar region (principal); M96.1 Postlaminectomy syndrome, not elsewhere classified; E11.9 Type 2 diabetes mellitus without complications; Z88.8 Allergy status to other drugs, medicaments and biological substances; Z79.899 Other long term (current) drug therapy; Z72.89 Other problems related to lifestyle; Z79.84 Long term (current) use of oral hypoglycemic drugs
CPT/HCPCS: 62323; J1030; J1040; Q9965

== ENCOUNTER → 2020-01-31 | Outpatient (CLI) | payer OTHER ==
[~2020-01-31] MED LIST changes: -IOHEXOL 180 MG/ML 10 ML VIAL. ONE; +OXYC-325 PO; +SENN1TAB99 PO; -methylPREDNISolone ACETATE 40 MG/ML VIAL. ONE; -methylPREDNISolone ACETATE 80 MG/ML VIAL. ONE
[2020-01-31 12:08] LABS: BASO % 1 % (0-3); EOS # 0.1 x10^3/uL (0.0-0.7); EOS % 2 % (0-3); HEMATOCRIT 39.5 % (36.0-47.0); HEMOGLOBIN 12.7 g/dL (12.0-15.5); LYMPH # 1.3 x10^3/uL (1.0-4.8); LYMPH % 24 % (24-48); MEAN CORPUSCULAR HEMOGLOBIN 31 pg (25-35); MEAN CORPUSCULAR HGB CONC 32 g/dL (31-37); MEAN CORPUSCULAR VOLUME 95 fL (79-100); MONO # 0.3 x10^3/uL (0.0-1.1); MONO % 7 % (0-9); NEUT # 3.5 x10^3/uL (1.8-7.7); NEUT % 67 % (31-73); PLATELET COUNT 212 x10^3/uL (140-400); RED BLOOD COUNT 4.14 x10^6/uL (3.50-5.40); RED CELL DISTRIBUTION WIDTH 15.1 % (11.5-14.5); WHITE BLOOD COUNT 5.3 x10^3/uL (4.0-11.0)
[2020-01-31 12:26] LABS: ALBUMIN 3.4 g/dL (3.4-5.0); ALBUMIN/GLOBULIN RATIO 1.1 (1.0-1.7); CALCIUM 8.7 mg/dL (8.5-10.1); CREATININE 0.7 mg/dL (0.6-1.0); GFR 89.3; POTASSIUM 3.7 mmol/L (3.5-5.1); TOTAL BILIRUBIN 0.2 mg/dL (0.2-1.0); TOTAL PROTEIN 6.5 g/dL (6.4-8.2)
[2020-01-31 23:08] LABS: HEMOGLOBIN A1C 6.6 % (4.8-5.6)
== END ==
LOC: SURGPAT 11:29
PROVIDERS: ATTEND Neurological Surgery
DX: Z01.812 Encounter for preprocedural laboratory examination (principal); M48.061 Spinal stenosis, lumbar region without neurogenic claudication; M54.16 Radiculopathy, lumbar region; M54.2 Cervicalgia; M54.5 Low back pain
CPT/HCPCS: 80053; 83036; 85025; 85610; 85730; 87641; U0003

== ENCOUNTER → 2020-02-04 | Day surgery (SDC) | payer OTHER ==
[~2020-02-04] MED LIST changes: +0.9 % SODIUM CHLORIDE 10 ML DISP.SYRIN. IV PRN; +BACITRACIN 50,000 UNIT in IV NORMAL SALINE 1000ML BAG 1,000 ML IRR ONE; +BUPIVACAINE MPF 0.5% 30 ML VIAL. ONE; +CALCIUM CARB/VIT D3 500/200 TABLET. PO SCH; +CALCIUM CARBONATE 500 MG TAB.CHEW PO PRN; +DESFLURANE > 120 MINUTES IH ONE; +DEXAMETHASONE SOD PHOS 20 MG/5 ML VIAL. ONE; +DOCUSATE SODIUM 100 MG CAPSULE. PO SCH; +DULoxetine HCL 30 MG CAPSULE.DR PO SCH; +ESTRADIOL 1 MG TABLET. PO SCH; +FERROUS SULFATE 325 MG TABLET. PO SCH; +GABAPENTIN 300 MG CAPSULE. PO SCH; +GELATIN SPONGE SIZE 100. ONE; +GLYCOPYRROLATE 1 MG/5 ML VIAL. ONE; +HYDROmorphone 2 MG/ML VIAL IV PRN; +IV NORMAL SALINE 1000ML BAG 1,000 ML IV SCH; +IV RINGERS,LACTATED 1000ML 1,000 ML IV SCH; +LIDOCAINE 1%/EPI 1:100,000 20 ML VIAL. ONE; +LIDOCAINE 2% PF 5 ML VIAL. ONE; +MAG HYDROX/ALUMINUM HYD/SIMETH 30 ML ORAL.SUSP PO PRN; +MAGNESIUM HYDROXIDE 2,400 MG/30 ML ORAL.SUSP. PO PRN; +METHOCARBAMOL 750 MG TABLET PO SCH; +MORPHINE SULFATE 2 MG/ML VIAL. IV PRN; +MULTIVITAMIN with MINERAL TABLET. PO SCH; +NALOXONE 0.4 MG/ML VIAL. IV PRN; +NEOSTIGMINE METHYLSULFATE 5 MG/5 ML SYRINGE. ONE; +ONDANSETRON PF 4 MG/2 ML VIAL. IV PRN; +ONDANSETRON PF 4 MG/2 ML VIAL. IVP PRN; +ONDANSETRON PF 4 MG/2 ML VIAL. ONE; +PHENYLEPHRINE in 0.9% NACL PF 1 MG/10 ML SYRINGE. IV ONE; +PROCHLORPERAZINE 10 MG/2 ML VIAL. IV PRN; +PROPOFOL 10 MG/ML (20ML) VIAL. IV ONE; +PROPOFOL 50 ML IV ONE; +REMIFENTANIL 2 MG VIAL. IV ONE; +ROCURONIUM 50 MG/5 ML VIAL. ONE; +SENNOSIDES/DOCUSATE 8.6/50MG TABLET. PO SCH; +SUCCINYLCHOLINE 200 MG/10 ML VIAL. ONE; +THROMBIN TOPICAL 20,000 UNIT SPRAY.SYRN KIT TP ONE; +ZOLPIDEM 5 MG TABLET. PO PRN; +diphenhydrAMINE 50 MG/ML VIAL IV PRN; +diphenhydrAMINE HCL 25 MG CAPSULE PO PRN; +ePHEDrine PF IN SALINE 50 MG/10 ML SYRINGE. IV ONE; +fentaNYL PF VIAL 100 MCG/2 ML VIAL IV PRN; +fentaNYL PF VIAL 100 MCG/2 ML VIAL ONE; +oxyCODONE/APAP 5/325 1 TAB TABLET PO ONE; +oxyCODONE/APAP 5/325 1 TAB TABLET PO PRN
--- NOTE | 2020-02-04 11:45 | PDOC ---
BRIEF OPERATIVE NOTE Date: Feb 04, 2020 Pre-Op Diagnosis lumbar stenosis, lumbar spondylosis with radiculopathy Post-Op Diagnosis same Procedure Performed right L4-5 hemilaminotomy with discectomy Surgeon Teodoro Director Of Dance none Anesthesia Type: General Blood Loss 10mL Findings prominent stenosis due to disc bulge and ligamentous hypertrophy at L4-5, neuromonitoring improved at completion of procedure Complications none apparent TANYA CRUZ MD Feb 04, 2020 11:45
[2020-02-04 12:25] VITALS: BP 111/63
--- NOTE | 2020-02-12 12:30 | OP ---
DATE OF SURGERY: 02/04/2020 SURGEON: Darrion Cruz MD ORTHOPAEDIC SURGEON: None. PROCEDURE: Right L4-L5 hemilaminotomy with diskectomy with intraoperative use of neuro monitoring, intraoperative use of microscope. ANESTHESIA: General. COMPLICATIONS: None. PROPHYLACTIC ANTIBIOTIC: Ancef. INDICATIONS FOR THE PROCEDURE: The patient is a 49-year-old female who presents with new onset right greater than left lower extremity pain localized to disk bulging and lumbar stenosis with lumbar spondylosis at L4-L5. Please refer to the patient's chart for additional detail. She has been refractory to nonsurgical treatment. DESCRIPTION OF PROCEDURE: After informed consent was obtained, the patient was brought into the operating room. She was placed under general anesthesia. Neuromonitoring acquired was initiated and baseline potentials were obtained. The patient was placed prone on the Gualberto table. All pressure points were checked and padded appropriately. An incision location was localized with fluoroscopy. Lumbar region was prepped and draped in the usual sterile fashion. Ancef was instituted as a prophylactic antibiotic. A midline incision centered over the region of lumbar 4-5 was made with a 10-blade scalpel. Monopolar electrocautery was utilized to dissect the avascular midline to the spinous processes of lumbar 4 and lumbar 5. This dissection was extended laterally to the right across the lamina at this location. Level was again verified with fluoroscopy prior to the initiation of decompression. A right hemilaminotomy was performed with a pneumatic drill as well as a [place] rongeur on the right at lumbar 4-5. The underlying ligament was gently dissected away from the thecal sac with a blunt nerve hook as well as a [place] and removed with a [place] rongeur. The thecal sac was gently retracted slightly medially and a prominent annulus was identified. The annulus at lumbar 4-5 was gently incised with 11-blade scalpel. Disk material emerged under pressure. This disk material was removed in a piecemeal fashion with pituitary rongeurs. Additional disk material was teased posterolaterally with a blunt nerve hook as well as [place] and additional disk material was removed with pituitary rongeur. The thecal sac was noted to be very well decompressed upon completion of these things. Decompression was verified with direct visualization as well as gentle palpation of a now flat annulus across the midline in cephalad and caudal directions. There was also noted that neuro monitoring was improved after completion of the decompression and completion of the procedure. Pristine hemostasis was achieved with FloSeal, cottonoids, generous irrigation, and some use of bipolar electrocautery. The wound was generously irrigated with antibiotic irrigation prior to the final closure. The muscle and fascia were then reapproximated with 0 Vicryl in a simple interrupted fashion. The subcutaneous tissues were reapproximated with 2-0 Vicryl in interrupted inverted fashion. The skin was reapproximated with 4-0 Vicryl in a running subcuticular fashion. Mastisol and Steri-Strips were applied and the wound was dressed with Telfa, 4 x 4, and tape. At the end of procedure, all needle and sponge counts were correct x 2. The patient was extubated in the operating room and taken to recovery in stable condition. There were no intraprocedural complications apparent. DARRION CRUZ MD DR: FARAZ/lydia JOB#: [id number] / [id number]
== END ==
LOC: SURG 07:07
PROVIDERS: ATTEND Neurological Surgery
DX: M47.26 Other spondylosis with radiculopathy, lumbar region (principal); M48.061 Spinal stenosis, lumbar region without neurogenic claudication; F32.9 Major depressive disorder, single episode, unspecified; E11.9 Type 2 diabetes mellitus without complications; Z79.899 Other long term (current) drug therapy; Z79.84 Long term (current) use of oral hypoglycemic drugs; Z88.8 Allergy status to other drugs, medicaments and biological substances
CPT/HCPCS: 63030; A7015; J0330; J0690; J1100; J2370; J2405; J2704; J2710; J3010; J3490; J7030; J7120; 76000

== ENCOUNTER → 2020-10-05 | Outpatient (CLI) | payer BC ==
[~2020-10-05] MED LIST changes: -0.9 % SODIUM CHLORIDE 10 ML DISP.SYRIN. IV PRN; -BACITRACIN 50,000 UNIT in IV NORMAL SALINE 1000ML BAG 1,000 ML IRR ONE; -BUPIVACAINE MPF 0.5% 30 ML VIAL. ONE; -CALCIUM CARB/VIT D3 500/200 TABLET. PO SCH; -CALCIUM CARBONATE 500 MG TAB.CHEW PO PRN; -DESFLURANE > 120 MINUTES IH ONE; -DEXAMETHASONE SOD PHOS 20 MG/5 ML VIAL. ONE; -DOCUSATE SODIUM 100 MG CAPSULE. PO SCH; -DULoxetine HCL 30 MG CAPSULE.DR PO SCH; -ESTRADIOL 1 MG TABLET. PO SCH; +FERR325T14 PO; -FERROUS SULFATE 325 MG TABLET. PO SCH; -GABAPENTIN 300 MG CAPSULE. PO SCH; -GELATIN SPONGE SIZE 100. ONE; -GLYCOPYRROLATE 1 MG/5 ML VIAL. ONE; -HYDROmorphone 2 MG/ML VIAL IV PRN; -IV NORMAL SALINE 1000ML BAG 1,000 ML IV SCH; -IV RINGERS,LACTATED 1000ML 1,000 ML IV SCH; -LIDOCAINE 1%/EPI 1:100,000 20 ML VIAL. ONE; -LIDOCAINE 2% PF 5 ML VIAL. ONE; -MAG HYDROX/ALUMINUM HYD/SIMETH 30 ML ORAL.SUSP PO PRN; -MAGNESIUM HYDROXIDE 2,400 MG/30 ML ORAL.SUSP. PO PRN; +MECO10005 PO; -METHOCARBAMOL 750 MG TABLET PO SCH; -MORPHINE SULFATE 2 MG/ML VIAL. IV PRN; -MULTIVITAMIN with MINERAL TABLET. PO SCH; -NALOXONE 0.4 MG/ML VIAL. IV PRN; -NEOSTIGMINE METHYLSULFATE 5 MG/5 ML SYRINGE. ONE; -ONDANSETRON PF 4 MG/2 ML VIAL. IV PRN; -ONDANSETRON PF 4 MG/2 ML VIAL. IVP PRN; -ONDANSETRON PF 4 MG/2 ML VIAL. ONE; -PHENYLEPHRINE in 0.9% NACL PF 1 MG/10 ML SYRINGE. IV ONE; -PROCHLORPERAZINE 10 MG/2 ML VIAL. IV PRN; -PROPOFOL 10 MG/ML (20ML) VIAL. IV ONE; -PROPOFOL 50 ML IV ONE; -REMIFENTANIL 2 MG VIAL. IV ONE; -ROCURONIUM 50 MG/5 ML VIAL. ONE; -SENNOSIDES/DOCUSATE 8.6/50MG TABLET. PO SCH; -SUCCINYLCHOLINE 200 MG/10 ML VIAL. ONE; -THROMBIN TOPICAL 20,000 UNIT SPRAY.SYRN KIT TP ONE; -ZOLPIDEM 5 MG TABLET. PO PRN; -diphenhydrAMINE 50 MG/ML VIAL IV PRN; -diphenhydrAMINE HCL 25 MG CAPSULE PO PRN; -ePHEDrine PF IN SALINE 50 MG/10 ML SYRINGE. IV ONE; -fentaNYL PF VIAL 100 MCG/2 ML VIAL IV PRN; -fentaNYL PF VIAL 100 MCG/2 ML VIAL ONE; -oxyCODONE/APAP 5/325 1 TAB TABLET PO ONE; -oxyCODONE/APAP 5/325 1 TAB TABLET PO PRN
[2020-10-05 09:48] LABS: BASO % 1 % (0-3); EOS # 0.1 x10^3/uL (0.0-0.7); EOS % 3 % (0-3); HEMATOCRIT 36.6 % (36.0-47.0); HEMOGLOBIN 12.1 g/dL (12.0-15.5); LYMPH # 1.4 x10^3/uL (1.0-4.8); LYMPH % 31 % (24-48); MEAN CORPUSCULAR HEMOGLOBIN 29 pg (25-35); MEAN CORPUSCULAR HGB CONC 33 g/dL (31-37); MEAN CORPUSCULAR VOLUME 89 fL (79-100); MONO # 0.3 x10^3/uL (0.0-1.1); MONO % 6 % (0-9); NEUT # 2.6 x10^3/uL (1.8-7.7); NEUT % 59 % (31-73); PLATELET COUNT 201 x10^3/uL (140-400); RED CELL DISTRIBUTION WIDTH 16.6 % (11.5-14.5); WHITE BLOOD COUNT 4.5 x10^3/uL (4.0-11.0)
[2020-10-05 09:56] LABS: PROTHROMBIN TIME PATIENT 11.8 SEC (11.7-14.0)
[2020-10-05 10:27] LABS: ALBUMIN 3.7 g/dL (3.4-5.0); ALBUMIN/GLOBULIN RATIO 1.3 (1.0-1.7); CALCIUM 8.9 mg/dL (8.5-10.1); CREATININE 0.7 mg/dL (0.6-1.0); GFR 88.9; POTASSIUM 3.9 mmol/L (3.5-5.1); TOTAL BILIRUBIN 0.3 mg/dL (0.2-1.0); TOTAL PROTEIN 6.5 g/dL (6.4-8.2)
[2020-10-06 02:08] LABS: HEMOGLOBIN A1C 6.1 % (4.8-5.6)
== END ==
LOC: SURGPAT 08:46
PROVIDERS: ATTEND Neurological Surgery
DX: Z01.818 Encounter for other preprocedural examination (principal); M51.27 Other intervertebral disc displacement, lumbosacral region; M62.81 Muscle weakness (generalized)
CPT/HCPCS: 36415; 80053; 83036; 85025; 85610; 85730; 87641

== ENCOUNTER 2020-10-06 06:29 | Inpatient (IN) | payer BC ==
[2020-10-05 09:51] VITALS: BP 135/68
[~2020-10-06] VITALS: Ht 170.2 cm; Wt 86.0 kg
[~2020-10-06 06:29] MED LIST changes: +HYDROmorphone 2 MG/ML VIAL IVP PRN; +IV RINGERS,LACTATED 1000ML 1,000 ML IV SCH; +MORPHINE SULFATE 2 MG/ML VIAL. IVP PRN; +PROCHLORPERAZINE 10 MG/2 ML VIAL. IVP PRN; +fentaNYL PF VIAL 100 MCG/2 ML VIAL IVP PRN
[2020-10-06 06:56] VITALS: BP 122/60
[2020-10-06] MEDS ORDERED: GELATIN SPONGE SIZE 100. ONE ×2 (07:09→10:09)
[2020-10-06] MEDS ORDERED: THROMBIN TOPICAL 20,000 UNIT SPRAY.SYRN KIT TP ONE (07:09)
[2020-10-06] MEDS ORDERED: BUPIVACAINE MPF 0.5% 30 ML VIAL. ONE (07:09)
[2020-10-06] MEDS ORDERED: LIDOCAINE 1%/EPI 1:100,000 20 ML VIAL. ONE (07:09)
[2020-10-06] MEDS ORDERED: LIDOCAINE 2% PF 5 ML VIAL. ONE (07:55)
[2020-10-06] MEDS ORDERED: PROPOFOL 10 MG/ML (20ML) VIAL. IV ONE (07:55)
[2020-10-06] MEDS ORDERED: DEXAMETHASONE SOD PHOS 20 MG/5 ML VIAL. ONE (07:55)
[2020-10-06] MEDS ORDERED: ONDANSETRON PF 4 MG/2 ML VIAL. ONE (07:55)
[2020-10-06] MEDS ORDERED: REMIFENTANIL 2 MG VIAL. IV ONE (07:56)
[2020-10-06] MEDS ORDERED: ROCURONIUM 50 MG/5 ML VIAL. ONE (07:56)
[2020-10-06] MEDS ORDERED: fentaNYL PF VIAL 100 MCG/2 ML VIAL ONE (07:56)
[2020-10-06] MEDS ORDERED: SUCCINYLCHOLINE 200 MG/10 ML VIAL. ONE (07:57)
[2020-10-06] MEDS ORDERED: MIDAZOLAM HCL/PF 2 MG/2 ML VIAL. ONE (07:59)
[2020-10-06] MEDS ORDERED: PROPOFOL 100 ML IV ONE (08:00)
[2020-10-06] MEDS ORDERED: NEOSTIGMINE METHYLSULFATE 5 MG/5 ML SYRINGE. ONE (09:10)
[2020-10-06] MEDS ORDERED: GLYCOPYRROLATE 1 MG/5 ML VIAL. ONE (09:10)
[2020-10-06] MEDS ORDERED: DESFLURANE 31 TO 60 MINUTES IH ONE (09:12)
[2020-10-06 10:05] VITALS: BP 123/76
--- NOTE | 2020-10-06 11:19 | RAD ---
CT LUMBAR SPINE WO History:Reason: BRAIN LAB, LUMBAR RADICULOPATHY / Spl. Instructions: / History: Technique: Noncontrast CT was performed of the lumbar spine. Multiplanar reconstructions were perform ed. Exposure: One or more of the following individualized dose reduction techniques were utilized for thi s examination: 1. Automated exposure control 2. Adjustment of the mA and/or kV according to patient size 3. Use of iterative reconstruction technique. Comparison: None Findings: Normal vertebral body height and alignment. No fracture. T12-L1: No canal or neuroforaminal narrowing. L1-L2: No canal or neuroforaminal narrowing. L2-L3: Small disc bulge. No canal or neuroforaminal narrowing. L3-L4: Small disc bulge. Mild facet arthropathy. No canal or neuroforaminal narrowing. L4-L5: Broad-based disc bulge. Postoperative changes right hemilaminectomy. No canal narrowing. Mild subarticular recess narrowing. Mild facet arthropathy. Mild bilateral neuroforaminal narrowing. L5-S1: Posterior calcified disc extrusion. No canal narrowing. Subarticular recess narrowing with ab utment of the descending S1 nerve roots. Moderate facet arthropathy. Mild bilateral neuroforaminal na rrowing. Impression: 1. Multilevel lumbar spondylosis most prominent L4-5 and L5-S1. Electronically signed by: Derick Murillo DO (10/06/2020 11:17 AM) [id number]
--- NOTE | 2020-10-14 13:24 | OP ---
DATE OF SURGERY: 10/06/2020 SURGEON: Dr. Darrion Valerio. ENGINEERING AID: None. PREOPERATIVE DIAGNOSES: Recurrent disk herniation, recurrent stenosis, lumbar radiculopathy. POSTOPERATIVE DIAGNOSES: Recurrent disk herniation, recurrent stenosis, lumbar radiculopathy. PROCEDURE: Redo decompression L4-L5, L5-S1 with a L4-S1 fusion. ANESTHESIA: General. Procedure aborted prior to the initiation of procedure secondary to medical emergency with the surgeon. DESCRIPTION OF PROCEDURE: The patient was brought to the operating room, she was placed under general anesthesia. All pressure points were checked and padded appropriately. Sudden medical emergency occurred relating to the primary surgeon's health and multidisciplinary decision was made to abort the case. The patient was awakened from general anesthesia without complication and taken to recovery room in stable condition. She was subsequently discharged from the hospital without complication for a later time to reschedule this elective procedure. MARY DR: Skylar TID: [id number]
== END 2020-10-06 10:30 | disposition home or self-care (01) | DRG 552 ==
LOC: OPSVCIP 06:29
PROVIDERS: ADMIT Neurological Surgery; ATTEND Neurological Surgery
PROC: 0SJ Lower Joints, Inspection (ICD-10-PCS; 2020-10-06)
PROC: 0SJ Lower Joints, Inspection (ICD-10-PCS; principal; 2020-10-06 08:30)
DX: M48.061 Spinal stenosis, lumbar region without neurogenic claudication (principal); M51.16 Intervertebral disc disorders with radiculopathy, lumbar region
CPT/HCPCS: 72131; A4209; A4213; A4222; A4314; A4315; A4344; A4364; A4452; A4930; A6254; A6258; A6402; J0330; J0690; J1100; J2250; J2405; J2704; J2710; J3010; J3490; J7120

== ENCOUNTER 2020-10-20 06:50 | Inpatient (IN) | payer BC ==
[~2020-10-20] VITALS: Ht 170.2 cm; Wt 86.0 kg
[~2020-10-20 06:50] MED LIST changes: +CYAN100031 PO; +DEXAMETHASONE SOD PHOS 4 MG/ML VIAL ONE; +LIDOCAINE 2% PF 5 ML VIAL. ONE; +MAGN400C PO; +MORPHINE SULFATE 2 MG/ML INJ. IVP PRN; -MORPHINE SULFATE 2 MG/ML VIAL. IVP PRN; +ONDANSETRON PF 4 MG/2 ML VIAL. ONE; +PROPOFOL 10 MG/ML (20ML) VIAL. IV ONE; +ROCURONIUM 50 MG/5 ML VIAL. ONE
[2020-10-20] MEDS ORDERED: LIDOCAINE 1%/EPI 1:100,000 20 ML VIAL. ONE (06:58)
[2020-10-20] MEDS ORDERED: BUPIVACAINE MPF 0.5% 30 ML VIAL. ONE (06:58)
[2020-10-20] MEDS ORDERED: GELATIN SPONGE SIZE 100. ONE (06:58)
[2020-10-20] MEDS ORDERED: THROMBIN TOPICAL 20,000 UNIT SPRAY.SYRN KIT TP ONE (06:58)
[2020-10-20] MEDS ORDERED: fentaNYL PF VIAL 100 MCG/2 ML VIAL ONE (08:17)
[2020-10-20] MEDS ORDERED: MIDAZOLAM HCL/PF 2 MG/2 ML VIAL. ONE (08:27)
[2020-10-20] MEDS ORDERED: REMIFENTANIL 2 MG VIAL. IV ONE ×2 (08:40→11:22)
[2020-10-20] MEDS ORDERED: PHENYLEPHRINE 10 MG/ML VIAL. ONE (08:57)
[2020-10-20] MEDS ORDERED: KETAMINE HCL IN NACL, ISO-OSM 50 MG/5 ML SYRINGE ONE (09:01)
[2020-10-20] MEDS ORDERED: PROPOFOL 50 ML IV ONE ×4 (09:43→12:46)
[2020-10-20] MEDS ORDERED: DESFLURANE > 120 MINUTES IH ONE (09:48)
[2020-10-20] MEDS ORDERED: PROPOFOL 10 MG/ML (20ML) VIAL. IV ONE (10:33)
[2020-10-20] MEDS ORDERED: ceFAZolin SODIUM IV Push 1 GM VIAL. IVP ONE (11:21)
[2020-10-20] MEDS ORDERED: VANCOMYCIN 1 GM VIAL. ONE (13:46)
[2020-10-20] MEDS ORDERED: HYDROmorphone 2 MG/ML VIAL ONE ×2 (13:55→15:15)
[2020-10-20] MEDS ORDERED: MORPHINE SULFATE 2 MG/ML INJ. ONE (14:50)
--- NOTE | 2020-10-20 14:51 | PDOC ---
BRIEF OPERATIVE NOTE Date: Oct 20, 2020 Pre-Op Diagnosis lumbar stenosis, lumbar radiculopathy, weakness Post-Op Diagnosis same Procedure Performed redo right L4-5 laminectomy, redo left L5-S1 laminectomy, instrumented posterolateral fusion L4-S1 Anesthesia Type: General Blood Loss 50mL Specimens Obtained decompression Findings prominent stenosis and scar tissue, neuromonitoring improved at completion of procedure Complications none apparent TANYA CRUZ MD Oct 20, 2020 14:51
[2020-10-20] MEDS: MORPHINE SULFATE 2 MG/ML INJ. IVP PRN ×2 (14:56→15:04)
[2020-10-20] MEDS ORDERED: IV NORMAL SALINE 1000ML BAG 1,000 ML IV SCH (15:00)
[2020-10-20] MEDS ORDERED: NALOXONE 0.4 MG/ML VIAL. IV PRN ×2 (15:00)
[2020-10-20] MEDS ORDERED: MAGNESIUM HYDROXIDE 2,400 MG/30 ML ORAL.SUSP. PO PRN (15:00)
[2020-10-20] MEDS ORDERED: MAG HYDROX/ALUMINUM HYD/SIMETH 30 ML ORAL.SUSP PO PRN (15:00)
[2020-10-20] MEDS ORDERED: ONDANSETRON PF 4 MG/2 ML VIAL. IVP PRN (15:00)
[2020-10-20] MEDS ORDERED: fentaNYL PF VIAL 100 MCG/2 ML VIAL IVP PRN ×2 (15:00)
[2020-10-20] MEDS ORDERED: ZOLPIDEM 5 MG TABLET. PO PRN (15:00)
[2020-10-20] MEDS ORDERED: oxyCODONE/APAP 5/325 1 TAB TABLET PO PRN ×2 (15:00)
[2020-10-20] MEDS ORDERED: diphenhydrAMINE 50 MG/ML VIAL IV PRN (15:00)
[2020-10-20] MEDS ORDERED: ACETAMINOPHEN 325 MG TABLET. PO PRN (15:00)
[2020-10-20] MEDS ORDERED: diphenhydrAMINE HCL 25 MG CAPSULE PO PRN (15:00)
[2020-10-20] MEDS ORDERED: CALCIUM CARBONATE 500 MG TAB.CHEW PO PRN (15:00)
[2020-10-20] MEDS ORDERED: 0.9 % SODIUM CHLORIDE 10 ML DISP.SYRIN. IV PRN (15:00)
[2020-10-20] MEDS: HYDROmorphone 2 MG/ML VIAL IVP PRN ×4 (15:18→15:47)
[2020-10-20] MEDS: MULTIVITAMIN with MINERAL TABLET. PO SCH (17:40)
[2020-10-20] MEDS: CALCIUM CARB/VIT D3 500/200 TABLET. PO SCH (17:40)
[2020-10-20] MEDS: FERROUS SULFATE 325 MG TABLET. PO SCH (17:40)
[2020-10-20 19:30] VITALS: BP 95/40
[2020-10-20] MEDS ORDERED: GABAPENTIN 300 MG CAPSULE. PO SCH (21:00)
[2020-10-20] MEDS: SENNOSIDES/DOCUSATE 8.6/50MG TABLET. PO SCH (21:00)
[2020-10-20] MEDS: METHOCARBAMOL 750 MG TABLET PO SCH (21:19)
[2020-10-20] MEDS: DOCUSATE SODIUM 100 MG CAPSULE. PO SCH (21:19)
[2020-10-20] MEDS ORDERED: NEOMY/BACITR/POLYMYXIN OINT PACKET. TP ONE (21:30)
[2020-10-20 23:25] VITALS: BP 88/47
[2020-10-21 03:13] VITALS: BP 95/39
[2020-10-21 07:00] VITALS: BP 118/52
--- NOTE | 2020-10-21 07:30 | NUR ---
Doing well this am. Still having some numbness on outer thigh on right leg and hip pain. States pain is less now than prior to surgery. New ice pack applied to lower back. Up in chair. Cont. monitor.
[2020-10-21] MEDS: SENNOSIDES/DOCUSATE 8.6/50MG TABLET. PO SCH (08:36)
[2020-10-21] MEDS: METHOCARBAMOL 750 MG TABLET PO SCH (08:36)
[2020-10-21] MEDS: FERROUS SULFATE 325 MG TABLET. PO SCH (08:36)
[2020-10-21] MEDS: MULTIVITAMIN with MINERAL TABLET. PO SCH (08:36)
[2020-10-21] MEDS: CALCIUM CARB/VIT D3 500/200 TABLET. PO SCH (08:36)
[2020-10-21] MEDS: DOCUSATE SODIUM 100 MG CAPSULE. PO SCH (08:37)
[2020-10-21] MEDS ORDERED: CYANOCOBALAMIN (VITAMIN B-12) 1,000 MCG TABLET. PO SCH (09:00)
[2020-10-21] MEDS ORDERED: MAGNESIUM OXIDE 400 MG TABLET PO SCH (09:00)
[2020-10-21] MEDS ORDERED: FERROUS SULFATE 325 MG TABLET. PO SCH (09:00)
[2020-10-21] MEDS ORDERED: DULoxetine HCL 30 MG CAPSULE.DR PO SCH (09:00)
--- NOTE | 2020-10-21 10:36 | PDOC ---
Date of Service: DATE: 10/21/20 TIME: 10:31 Progress Note: S: Reports resolution of lower extremity weakness and numbness with exception of some right lateral thigh numbness. Ambulating without significant problem. Denies acute complaints otherwise. O: AF\VSS, AAOx4, NAD, sensation intact LT, LYNN now 5/5 throughout including 5/5 left ankle DF and PF, dressing c/d/i A: POD 1 redo right L4-5 and left L5-S1 laminectomies with instrumented posterolateral fusion L4-5-S1 P: Appears to be recovering well thus far. D/c home today with standard post-op restrictions. Justifications for Admission Other Justification TANYA CRUZ MD Oct 21, 2020 10:36
[2020-10-21 11:00] VITALS: BP 96/46
[2020-10-21] MEDS ORDERED: SENN1TAB99 PO (11:20)
--- NOTE | 2020-10-21 13:00 | NUR ---
Discharge instructions given with prescriptions. Answered questions and concerns. Both patient and spouse verbalized understanding. Instructed and demonstrated to spouse how to change dressing. Verbalized understanding. Supplies given. Discharged home, escorted out by w/c.
--- NOTE | 2020-10-21 20:42 | OP ---
DATE OF SURGERY: 10/20/2020 SURGEON: Darrion Valerio MD HUMAN RESOURCES SAFETY MANAGER: None. 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 PROCEDURE: Redo right L4-L5 hemilaminectomy with a redo left L5-S1 laminectomy for decompression with an L4 through S1 posterolateral instrumented fusion utilizing allograft instituted with autograft marrow, taken from a separate fascial incision. ANESTHESIA: General. COMPLICATIONS: None. INDICATIONS: The patient is a pleasant 50-year-old female with recurrent pain and subsequent weakness related to recurrent stenosis at the aforementioned locations, please refer to the patient's chart for additional detail. DESCRIPTION OF PROCEDURE: After informed consent was obtained, the patient was brought into the operating room, placed under general anesthesia and was placed in the prone position on the Gualberto table. All pressure points were checked and padded appropriately. Neuromonitoring was instituted. Baseline potentials were obtained. Ancef was utilized for prophylaxis. The patient previously received a stereotactic CT of the lumbar spine. The lumbar region was prepped and draped in the usual sterile fashion. Percutaneous incisions were made to attach a reference array with pins in the right iliac crest. Once this was complete, a 3D C-arm image was obtained with good localization. This was fused with the stereotactic CT with good localization. The patient had a previous vertical incision, this was reopened with 10 blade scalpel. Monopolar electrocautery was utilized to dissect the avascular midline on the spinous processes of L4 through S1 and dissection was carried out laterally bilaterally at these locations to expose the facets as well as the transverse processes. Stereotaxis as well as anatomic landmarks were utilized to create pedicle screw trajectories bilaterally at lumbar 4, lumbar 5 and sacral 1. Under live stereotactic and neuromonitoring, a stereotactic awl was utilized to create the trajectories at these locations. Also, with live neuromonitoring, these trajectories were developed with a tap at all the aforementioned locations. Once this was complete, decompression was achieved on the right at L4-L5 with a redo hemilaminectomy. Scar tissue was gently dissected with curettes and the prior hemilaminectomy was expanded with a Kerrison rongeur. Neural elements were noted to be well decompressed upon completion of this, verified with direct visualization as well as gentle palpation with a Mccurtain and a nerve hook. It was also noted that monitoring potentials were improved. In a similar fashion, the left L5-S1 region was dissected free of scar tissue. The margins of the prior decompression were dissected with a curette as well as Kerrison rongeur. The prior decompression was expanded to incorporate a full hemilaminectomy on the left at L5-S1. The neural elements were noted to be very well decompressed upon completion of this. The apparent recurrent stenosis was noted to be significantly composed of scar tissue with some disk material. This was gently removed with the Kerrison as well as a pituitary rongeur. After completion of this, the neural elements were noted to be very well decompressed, verified with direct visualization as well as gentle palpation with a Yoli and a blunt nerve hook. Upon completion of this decompression, it was also noted that the neuro monitoring potentials were improved compared to baseline. Upon completion of these things, 6.5mm diameter Precision Spine pedicle screws were instituted bilaterally at lumbar 4, lumbar 5 and sacral 1 with good purchase. Position of the screws were verified with fluoroscopy. The adjacent bone was decorticated and allograft combined with a bone marrow aspirate taken from the left iliac crest under stereotaxis, utilizing a Jamshidi needle and the syringe, through a separate fascial incision was completed and placed in the region of decorticated bone adjacent to the pedicle screw placements. Curved rods were instituted into the pedicle screw heads bilaterally and these were secured with set screws and locked according to the commercial field inspector's specifications. Upon completion of the fusion construct, it was visualized with fluoroscopy and noted to be adequate. Upon completion of decompression and fusion, the incision was generously irrigated. Pristine hemostasis was achieved with FloSeal, cottonoids, and some use of bipolar electrocautery. A 1 gram of vancomycin powder was instituted into the operative cavity as prophylaxis. The muscles and fascia were then reapproximated with 0 Vicryl in a simple interrupted fashion. The subcutaneous tissues were approximated with 2-0 Vicryl in interrupted inverted fashion. The skin was reapproximated with 4-0 Vicryl in a running subcuticular fashion. Mastisol and Steri-Strips were applied and Telfa, 4 x 4's and Tegaderm. The stereotactic array was detached and removed. These wounds were generously irrigated and secured with Dermabond. All counts were correct. The patient was extubated in the operating room and taken to recovery in stable condition. There were no intraoperative complications apparent. CAROLA DR: Skylar TID: [id number] MTDD
--- NOTE | 2020-10-22 17:07 | PATHOLOGY ---
[facility] Accession Number: [id number] . 01 Material submitted: . vertebral column - DECOMPRESSION. Modifiers: LUMBAR, DISC . 01 Clinical history: . LUMBAR RADICULOPATHY, LUMBAR STENOSIS L4-5, L5-S1 LAMINECTOMY RECURRENT DISC HERNIATION . 02 Diagnosis: Segments of fibrocartilaginous, fibroadipose, and skeletal muscle tissue and bone, lumbar decompression: - Degenerative changes of fibrocartilaginous tissue. LBQ 10/22/2020 1350 Local . 02 Comment: There is no evidence of an acute inflammatory process or malignancy. (JPM/db; 10/22/2020) . 02 Electronically signed: . Jimy Merino MD, Pathologist NPI- [id number] . 01 Gross description: . The specimen is received in formalin, labeled "[place], decompression". The specimen is additionally labeled on the requisition as, "L4-5, L5-S1". Received are multiple segments of pink-bull, rubbery and gritty tissue admixed with fragments of bone measuring 4.8 x 4.2 x 1.2 cm in aggregate dimensions. The specimen is submitted representatively in cassette A1, following light decalcification. (CAA; 10/21/2020) QAC/QAC 10/22/2020 1348 Local . 02 Pathologist provided ICD-10: M54.16, M99.73 . 02 CPT . 871145, 465923 Specimen Comment: A courtesy copy of this report has been sent to [phone], [phone] Specimen Comment: [id number] Specimen Comment: Report sent to , DR YANG / DR RODRÍGUEZ Performed at: [address], [place], [place] [id number] MD Chidi Santana MD Phone: [phone] Performed at: [address] [id number] MD Jimy Merino MD Phone: [phone]
== END 2020-10-21 13:00 | disposition home or self-care (01) | DRG 460 ==
LOC: OPSVCIP 06:50 → 4 NORTH 16:02
PROVIDERS: ADMIT Neurological Surgery; ATTEND Neurological Surgery
PROC: 0SG3071 Fusion of Lumbosacral Joint with Autologous Tissue Substitute, Posterior Approach, Posterior Column, Open Approach (ICD-10-PCS; 2020-10-20)
PROC: 01NB0ZZ Release Lumbar Nerve, Open Approach (ICD-10-PCS; 2020-10-20)
PROC: 01NR0ZZ Release Sacral Nerve, Open Approach (ICD-10-PCS; 2020-10-20)
PROC: 07DR3ZZ Extraction of Iliac Bone Marrow, Percutaneous Approach (ICD-10-PCS; 2020-10-20)
PROC: 0SG0071 Fusion of Lumbar Vertebral Joint with Autologous Tissue Substitute, Posterior Approach, Posterior Column, Open Approach (ICD-10-PCS; principal; 2020-10-20 08:30)
DX: M48.061 Spinal stenosis, lumbar region without neurogenic claudication (principal); M51.16 Intervertebral disc disorders with radiculopathy, lumbar region
CPT/HCPCS: 76000; 88304; 88311; A4213; A4314; A4315; A4344; A4364; A4452; A4930; A6254; A6257; A6258; A6402; C1713; J0690; J0780; J1100; J1170; J2250; J2270; J2370; J2405; J2704; J3010; J3370; J3490; J7120; G0378